=== PATIENT | female | born 1995 | race Caucasian/White ===

== ENCOUNTER 2024-01-26 23:50 | Emergency (ER) | payer SELFPAY ==
[2024-01-26 23:55] VITALS: BP 128/72
[2024-01-27 00:33] VITALS: BMI 24.5
--- NOTE | 2024-01-27 00:35 | EDRN ---
Pt thinks she swallowed 'a little chicken bone and it is stuck in my throat.' Pt says this happened about 30 minutes ago. 'i have a weird pressure in my throat.' Pt does not know if 'I'm anxiety ridden or there is something stuck in my throat.'
Pt was eating fried chicken when this happened. Pt stopped eating and drank a lot of water. Pt handling oral secretions, able to swallow the water without difficulty. No hx of similar. No cp or sob.
--- NOTE | 2024-01-27 01:01 | ED.GENMED ---
History of Present Illness
General
Chief Complaint: Esophageal Problem
Source: patient and family
Exam Limitations: none
Time Seen by Provider: 01/27/24 00:23
Nursing documentation reviewed up to this point in time: agreed with
History of Present Illness
History of Present Illness:
Pleasant 28-year-old female that presents after possibly swallowing a chicken bone. She felt that there was something in her throat but had no difficulty eating solid foods or drinking liquids. Denies any breathing issues. Reports no complaints
at this time other than the sensation.
Past History
Past History
ED Past Medical History: None
ED Past Surgical History: None
Social History
Tobacco: Smoker
Alcohol: Occasional
Personal: Single
Living: with family
Employment: Student
Family History
Family History: Other (Noncontributory)
Review of Systems
Review of Systems
Allergies reviewed?: Yes
Other source history: family
All Other Systems: ROS reviewed and negative except as documented in HPI and ROS
Constitutional: Reports no symptoms
EENT: Reports other (Throat pain)
Respiratory: Reports no symptoms
Cardiac: Reports no symptoms
ABD/GI: Reports no symptoms
: Reports no symptoms
Musculoskeletal: Reports no symptoms
Skin: Reports no symptoms
Neurological: Reports no symptoms
Endocrine: Reports no symptoms
Hematologic/Lymphatic: Reports no symptoms
Psychiatric: Reports no symptoms
Phy Exam
General Physical Exam
General Presentation: well appearing and no apparent distress
General Skin: warm and dry
General Habitus: normal
General Mental: alert
General Hydration: appears well hydrated
ENT Exam
ENT Exam: EOMI, pharynx normal, neck supple and normocephalic
Eye Exam
Eye Exam: PERRL, cornea clear and conjunctiva normal
Cardiovascular Exam
Cardiovascular Exam: regular rate/rhythm, no edema, no murmur and normal peripheral pulses
Pulmonary Exam
Pulmonary Exam: lungs clear, no respiratory distress, no rales, no crackles, no rhonchi, no stridor, no wheezing and no cough
Gastrointestinal Exam
Gastrointestinal Exam: normal bowel sounds, non tender, soft, no organomegaly, no pulsatile mass and non distended
Neurological Exam
Neurological Exam: alert, oriented x3, no motor deficits and speech normal
Musculoskeletal Exam
Musculoskeletal Exam: full ROM and no edema
Skin Exam
Skin Exam: normal color, warm/dry, no rash and no petechia
Psychiatric Exam
Psychiatric Exam: normal mood/affect
Course
Orders/Labs/Results
Orders:
Orders
01/27/24 01:01
Pantoprazole [Protonix] 20 mg PO NOW STA
Sucralfate Suspension [Carafate Suspension] 1 gm PO NOW STA
Vital Signs
Initial and Last Documented VS:
Initial Vital Signs
Temp Pulse Resp BP Pulse Ox
98.2 F 76 18 128/72 98
01/26/24 23:55 01/26/24 23:55 01/26/24 23:55 01/26/24 23:55 01/26/24 23:55
Last Documented Vital Signs
Temp Pulse Resp BP Pulse Ox
98.2 F 76 18 128/72 98
01/26/24 23:55 01/26/24 23:55 01/26/24 23:55 01/26/24 23:55 01/26/24 23:55
*Critical Care Note
Total Time (30-74mins, 75-104mins- exclusive of procedures): Not Applicable
ED Attending Note
-
Portions of this chart may have been created with voice recognition software.� Occasional wrong word or��sound alike� substitutions may have occurred due to the inherent limitations of voice recognition software.
Discharge Plan
Departure
Patient Disposition: Home (Routine Discharge)
Date of Disposition: 01/27/24
Time of Disposition: 01:03
Patient with high blood pressure during this ER visit?: Yes
Condition: Good
Discharge Problem:
Throat pain
Instructions: Foreign Body, Swallowed, Adult, BLOOD PRESSURE
Prescriptions:
New
pantoprazole [Protonix] 20 mg tablet,delayed release (DR/EC)
20 mg PO DAILY Qty: 14 0RF
sucralfate [Carafate] 100 mg/mL suspension
10 ml PO QID Qty: 200 0RF
No Action
norethindrone-e.estradiol-iron [Aurovela Fe 1-20 (28)] 1 mg-20 mcg (21)/75 mg (7) Tablet
1 tab PO DAILY
Referrals:
Corey Boland MD [Active] - As needed
Activity Restrictions/Additional Instructions:
It was a pleasure meeting you and taking part in your care. We hope for your continued healing and wellness.
Please read discharge instructions in their entirety. However, they are for general education and may not describe your exact diagnosis at discharge. Information on your ER visit and medical conditions were discussed with you along with appropriate
follow up information...
If indicated, please take your medications as instructed and indicated on discharge paperwork.
Please schedule a follow up appointment as directed. Call to schedule an appointment
Please return to the emergency department with ANY change in, persisting, or worsening of symptoms. If any of your symptoms do not improve, or persist, or become more severe within 6-12 hours, please return to the emergency department for further
care.
Please return to the emergency department if you develop a headache, neck pain/stiffness, fever greater than 100.4F, chest pain, shortness of breath, persistent nausea, vomiting, slurred speech, difficulty walking, numbness/tingling, weakness, signs
of infection or any other symptoms that are worrisome to you.
If you have any questions or concerns please do not hesitate to call the Hospital at or E-mail me directly at [email or web address]
Interventions
Interventions:
*Risk Screen - Suicide Last Done: 01/26/24 23:55
*General Assessment Last Done: 01/26/24 23:55
*Neglect/Abuse Screening Last Done: 01/26/24 23:55
*ED COVID-19 Vaccine History Last Done: 01/27/24 00:33
YB-Fqergq-Efbzfhxzwb Assessment Last Done: 01/27/24 00:40
ED-EENT Assessment Last Done: 01/27/24 00:40
Discharge Date and Time
Print Language: URDU
[2024-01-27] MEDS: PROTONIX 20 MG PO (01:26)
[2024-01-27 01:27] VITALS: BP 102/63
[2024-01-27] MEDS: CARAFATE SUSPENSION 1 GM PO (01:31)
== END 2024-01-27 01:36 | disposition home or self-care (01) ==
LOC: EMR 23:50
PROVIDERS: EMERGENCY PHYSICIAN Student in an Organized Health Care Education/Training Program; FAMILY PHYSICIAN Family Medicine
DX: R07.0 Pain in throat (principal); R03.0 Elevated blood-pressure reading, without diagnosis of hypertension; F17.200 Nicotine dependence, unspecified, uncomplicated
CPT/HCPCS: 99283